=== PATIENT | male | born 1945 | race Caucasian/White ===

== ENCOUNTER 2022-01-27 08:26 | Inpatient (IN) | payer MEDICARE ==
[2022-01-27] VITALS (219 sets, daily range): BP systolic 96–108; BP diastolic 44–69; PULSE 75–101; TEMP 97.1–98.8; O2SAT 35–100
[~2022-01-27] VITALS: Ht 177.8 cm; Wt 67.4 kg
[2022-01-27 09:04] LABS: MEAN CELL VOLUME 85 fl (80.0-100.0); MEAN CORPUSCULAR HGB CONC 29 g/dl (33.0-37.0); MEAN PLATELET VOLUME 10.3 fl (7.4-10.4); PLATELET COUNT 543 K/mm3 (130-400); RED BLOOD COUNT 2.13 M/mm3 (4.20-5.60); REDCELL DISTRIBUTION WIDTH-CV 15.9 % (11.5-14.5)
[2022-01-27 09:08] LABS: HEMOGLOBIN 5.2 g/dl (13.5-18.0); MEAN CORPUSCULAR HEMOGLOBIN 24 pg (27-31)
[2022-01-27 09:23] LABS: ALANINE AMINOTRANSFERASE 16 U/L (0-55); ALBUMIN 1.8 gm/dL (3.4-4.8); ALKALINE PHOSPHATASE 129 U/L (40-150); ANION GAP 24 mmol/L (7-16); AST,SGOT 20 U/L (5-34); BILIRUBIN,TOTAL 0.3 mg/dL (0.2-1.2); BLOOD UREA NITROGEN 75 mg/dL (8-26); CALCIUM 7.3 mg/dL (8.4-10.2); CHLORIDE 105 mmol/L (98-107); CREATININE, serum 1.84 mg/dL (0.72-1.25); GLUCOSE 189 mg/dL (70-99); LIPASE 34 U/L (8-78); POTASSIUM 5.1 mmol/L (3.5-4.5); SODIUM 138 mmol/L (136-145); TOTAL PROTEIN 5.1 gm/dL (6.2-8.1)
[2022-01-27 09:34] LABS: CARBON DIOXIDE 9 mmol/L (23-31); TROPONIN-I < 0.010 ng/mL (0.00-0.033)
[2022-01-27 09:40] LABS: BAND 20 % (0-10); LYMPHOCYTE 3 % (20.0-51.0); METAMYELOCYTE 1 % (0-0); NEUTROPHILS 76 % (42.0-75.2)
[2022-01-27 09:41] LABS: OVALOCYTES 1+; PLATELET ESTIMATE INCREASED (NORMAL); SCHISTOCYTES 1+
[2022-01-27 09:43] LABS: ANISOCYTOSIS 1+; HYPOCHROMIA 2+
[2022-01-27 09:50] LABS: MUCOUS Present (NOT PRESENT); PH 5 (5-8); SQUAMOUS EPITHELIAL 0-2 /hpf (0-10); URINE APPEARANCE Hazy (CLEAR/HAZY); URINE BACTERIA None Seen /hpf (NONE SEEN); URINE BILIRUBIN Negative (NEGATIVE); URINE BLOOD Negative (NEGATIVE); URINE COLOR Yellow (YELLOW); URINE GLUCOSE Negative (NEGATIVE); URINE KETONE Negative (NEGATIVE); URINE LEUKOCYTE ESTERASE Negative (NEGATIVE); URINE NITRATE Negative (NEGATIVE); URINE PROTEIN(semi-quant) Negative (NEGATIVE); URINE RBC 0-2 /hpf (0-2); URINE UROBILINOGEN Negative (NEGATIVE)
[2022-01-27 11:05] LABS: COLLECTION METHOD CATHETER
[2022-01-27] MEDS ORDERED: ADVIL200 MG PO (13:55)
[2022-01-27 19:39] LABS: HEMATOCRIT 23.5 % (42.0-52.0); HEMOGLOBIN 7.7 g/dl (13.5-18.0)
[2022-01-27 20:37] LABS: CREATININE, serum 1.46 mg/dL (0.72-1.25); POTASSIUM 4.7 mmol/L (3.5-4.5)
[2022-01-28] VITALS (724 sets, daily range): BP systolic 102–130; BP diastolic 36–70; PULSE 98–108; TEMP 97.8–99; O2SAT 41–100
[2022-01-28 06:19] LABS: MEAN CORPUSCULAR HGB CONC 32 g/dl (33.0-37.0); MEAN PLATELET VOLUME 10.5 fl (7.4-10.4); RED BLOOD COUNT 2.43 M/mm3 (4.20-5.60); REDCELL DISTRIBUTION WIDTH-CV 15.3 % (11.5-14.5)
[2022-01-28 06:29] LABS: HEMATOCRIT 19.3 % (42.0-52.0); HEMOGLOBIN 6.2 g/dl (13.5-18.0); MEAN CELL VOLUME 79 fl (80.0-100.0); MEAN CORPUSCULAR HEMOGLOBIN 26 pg (27-31); PLATELET COUNT 310 K/mm3 (130-400)
[2022-01-28 06:40] LABS: ALBUMIN 1.5 gm/dL (3.4-4.8); CALCIUM 6.3 mg/dL (8.4-10.2); CREATININE, serum 1.87 mg/dL (0.72-1.25); MAGNESIUM 2.4 mg/dL (1.6-2.6); PHOSPHOROUS 6.6 mg/dL (2.3-4.7); POTASSIUM 4.7 mmol/L (3.5-4.5)
[2022-01-28 06:42] LABS: ANISOCYTOSIS 1+; BAND 43 % (0-10); LYMPHOCYTE 4 % (20.0-51.0); NEUTROPHILS 51 % (42.0-75.2); NUCLEATED RED BLOOD CELL 2 (0-6); PLATELET ESTIMATE NORMAL (NORMAL)
[2022-01-28 16:21] LABS: HEMATOCRIT 22.2 % (42.0-52.0); HEMOGLOBIN 7.2 g/dl (13.5-18.0)
[2022-01-28 20:53] LABS: HEMATOCRIT 21.8 % (42.0-52.0)
[2022-01-29] VITALS (1021 sets, daily range): BP systolic 103–166; BP diastolic 49–87; PULSE 89–158; TEMP 16; O2SAT 53–100
[2022-01-29 05:46] LABS: MEAN CELL VOLUME 82 fl (80.0-100.0); MEAN CORPUSCULAR HGB CONC 32 g/dl (33.0-37.0); MEAN PLATELET VOLUME 10.5 fl (7.4-10.4); RED BLOOD COUNT 2.57 M/mm3 (4.20-5.60); REDCELL DISTRIBUTION WIDTH-CV 15.7 % (11.5-14.5)
[2022-01-29 05:54] LABS: HEMATOCRIT 21.1 % (42.0-52.0); MEAN CORPUSCULAR HEMOGLOBIN 26 pg (27-31); PLATELET COUNT 203 K/mm3 (130-400)
[2022-01-29 05:55] LABS: HEMOGLOBIN 6.7 g/dl (13.5-18.0)
[2022-01-29 06:02] LABS: ALBUMIN 1.4 gm/dL (3.4-4.8); CALCIUM 6.8 mg/dL (8.4-10.2); CREATININE, serum 1.92 mg/dL (0.72-1.25); MAGNESIUM 2.3 mg/dL (1.6-2.6); PHOSPHOROUS 6.3 mg/dL (2.3-4.7); POTASSIUM 3.8 mmol/L (3.5-4.5)
[2022-01-29 06:17] LABS: BAND 2 % (0-10); LYMPHOCYTE 1 % (20.0-51.0); NEUTROPHILS 96 % (42.0-75.2)
[2022-01-29 06:18] LABS: ANISOCYTOSIS 1+; HYPOCHROMIA 1+; PLATELET ESTIMATE NORMAL (NORMAL)
[2022-01-29 06:19] LABS: BURR CELLS 2+
[2022-01-29 15:10] LABS: HEMOGLOBIN 7.4 g/dl (13.5-18.0)
[2022-01-30] VITALS (1155 sets, daily range): BP systolic 119–145; BP diastolic 67–79; PULSE 76–92; TEMP 97–98.9; O2SAT 47–100
[2022-01-30 06:38] LABS: MEAN CELL VOLUME 81 fl (80.0-100.0); MEAN CORPUSCULAR HGB CONC 32 g/dl (33.0-37.0); MEAN PLATELET VOLUME 10.5 fl (7.4-10.4); PLATELET COUNT 172 K/mm3 (130-400); RED BLOOD COUNT 3.02 M/mm3 (4.20-5.60); REDCELL DISTRIBUTION WIDTH-CV 16.3 % (11.5-14.5)
[2022-01-30 06:46] LABS: HEMATOCRIT 24.4 % (42.0-52.0); HEMOGLOBIN 7.9 g/dl (13.5-18.0); MEAN CORPUSCULAR HEMOGLOBIN 26 pg (27-31)
[2022-01-30 07:01] LABS: ALBUMIN 1.3 gm/dL (3.4-4.8); CALCIUM 7.3 mg/dL (8.4-10.2); CREATININE, serum 1.42 mg/dL (0.72-1.25); MAGNESIUM 2.3 mg/dL (1.6-2.6); PHOSPHOROUS 6.3 mg/dL (2.3-4.7); POTASSIUM 3.3 mmol/L (3.5-4.5)
[2022-01-30 07:19] LABS: BAND 5 % (0-10); LYMPHOCYTE 2 % (20.0-51.0); NEUTROPHILS 90 % (42.0-75.2)
[2022-01-30 07:20] LABS: ANISOCYTOSIS 2+; HYPOCHROMIA 1+; PLATELET ESTIMATE NORMAL (NORMAL)
[2022-01-31] VITALS (792 sets, daily range): BP systolic 111–144; BP diastolic 55–71; PULSE 73–83; TEMP 97.6–98.7; O2SAT 65–100
[2022-01-31 05:33] LABS: MEAN CELL VOLUME 83 fl (80.0-100.0); MEAN CORPUSCULAR HGB CONC 32 g/dl (33.0-37.0); PLATELET COUNT 146 K/mm3 (130-400); RED BLOOD COUNT 3.02 M/mm3 (4.20-5.60); REDCELL DISTRIBUTION WIDTH-CV 17.1 % (11.5-14.5)
[2022-01-31 05:52] LABS: HEMATOCRIT 25.1 % (42.0-52.0); HEMOGLOBIN 7.9 g/dl (13.5-18.0); MEAN CORPUSCULAR HEMOGLOBIN 26 pg (27-31)
[2022-01-31 06:07] LABS: ALBUMIN 1.2 gm/dL (3.4-4.8); CALCIUM 7.4 mg/dL (8.4-10.2); CREATININE, serum 1.35 mg/dL (0.72-1.25); MAGNESIUM 2.3 mg/dL (1.6-2.6); PHOSPHOROUS 5.8 mg/dL (2.3-4.7)
[2022-01-31 06:44] LABS: BAND 21 % (0-10); HYPOCHROMIA 1+; LYMPHOCYTE 2 % (20.0-51.0); NEUTROPHILS 75 % (42.0-75.2); PLATELET ESTIMATE NORMAL (NORMAL)
[2022-02-01 15:53] LABS: MEAN CELL VOLUME 85 fl (80.0-100.0); MEAN CORPUSCULAR HGB CONC 31 g/dl (33.0-37.0); MEAN PLATELET VOLUME 11.7 fl (7.4-10.4); PLATELET COUNT 136 K/mm3 (130-400); RED BLOOD COUNT 3.35 M/mm3 (4.20-5.60); REDCELL DISTRIBUTION WIDTH-CV 18.7 % (11.5-14.5)
[2022-02-01 15:59] LABS: HEMATOCRIT 28.5 % (42.0-52.0); HEMOGLOBIN 8.7 g/dl (13.5-18.0); MEAN CORPUSCULAR HEMOGLOBIN 26 pg (27-31)
[2022-02-01 16:09] LABS: CALCIUM 7.6 mg/dL (8.4-10.2); CREATININE, serum 1.27 mg/dL (0.72-1.25); POTASSIUM 3.3 mmol/L (3.5-4.5)
[2022-02-01 16:15] LABS: BASOPHIL 1 % (0-2); NEUTROPHILS 99 % (42.0-75.2)
[2022-02-01 16:16] LABS: ANISOCYTOSIS 1+; HYPOCHROMIA 3+
[2022-02-01 16:18] LABS: BURR CELLS 2+
[2022-02-01 16:19] LABS: PLATELET ESTIMATE NORMAL (NORMAL)
== END 2022-02-02 11:30 | disposition expired | DRG 356 ==
LOC: COL.ER 08:26 → ICU 11:13 → MEDICAL 01-31 01:28 → ICU 01-31 01:28 → MEDICAL 01-31 18:00
PROVIDERS: Emergency Medicine; Internal Medicine Pulmonary Disease; Nurse Practitioner Family; ADMIT Internal Medicine
PROC: 02HV33Z Insertion of Infusion Device into Superior Vena Cava, Percutaneous Approach (ICD-10-PCS; principal; 2022-01-27)
PROC: 30233N1 Transfusion of Nonautologous Red Blood Cells into Peripheral Vein, Percutaneous Approach (ICD-10-PCS; 2022-01-27)
PROC: 0WBF3ZX Excision of Abdominal Wall, Percutaneous Approach, Diagnostic (ICD-10-PCS; 2022-01-29)
PROC: 06H03DZ Insertion of Intraluminal Device into Inferior Vena Cava, Percutaneous Approach (ICD-10-PCS; 2022-01-29)
DX: C76.2 Malignant neoplasm of abdomen (principal); E43 Unspecified severe protein-calorie malnutrition; I26.99 Other pulmonary embolism without acute cor pulmonale; J96.01 Acute respiratory failure with hypoxia; I47.1 Supraventricular tachycardia; N17.9 Acute kidney failure, unspecified; D62 Acute posthemorrhagic anemia; E87.2 Acidosis; I96 Gangrene, not elsewhere classified; L03.115 Cellulitis of right lower limb; L97.919 Non-pressure chronic ulcer of unspecified part of right lower leg with unspecified severity; I82.451 Acute embolism and thrombosis of right peroneal vein; K92.2 Gastrointestinal hemorrhage, unspecified; I82.413 Acute embolism and thrombosis of femoral vein, bilateral; R57.1 Hypovolemic shock; E87.6 Hypokalemia; Z51.5 Encounter for palliative care; Z20.822 Contact with and (suspected) exposure to COVID-19; I95.9 Hypotension, unspecified; D64.9 Anemia, unspecified; E87.5 Hyperkalemia; D75.839 Thrombocytosis, unspecified; E88.09 Other disorders of plasma-protein metabolism, not elsewhere classified; D72.0 Genetic anomalies of leukocytes; D63.8 Anemia in other chronic diseases classified elsewhere; N18.9 Chronic kidney disease, unspecified
CPT/HCPCS: 99223-AI; 99233-AI; 99239; A4314; A9540; A9567; C1751; C1769; C1880; C1892; C1894; C9113; J0282; J1644; J2060; J2270; J2543; J3370; J3480; J7030; J7050; J7060; J7120; P9016; Q9967